=== PATIENT | female | born 1960 | race Two or more races ===

== ENCOUNTER 2021-01-02 08:05 | Outpatient (CLI) | payer OTHER | END 2021-01-02 08:39 | disposition home or self-care (01) | LOC: SONOGRAMA 08:05 | PROVIDERS: ATTEND Pathology Anatomic Pathology & Clinical Pathology | DX: E04.2 Nontoxic multinodular goiter (principal) ==

== ENCOUNTER 2021-08-14 08:41 | Outpatient (CLI) | payer OTHER | END 2021-08-14 08:43 | disposition home or self-care (01) | LOC: SONOGRAMA 08:41 | PROVIDERS: ATTEND Pathology Anatomic Pathology & Clinical Pathology | DX: E04.1 Nontoxic single thyroid nodule (principal) ==